=== PATIENT | female | born 1945 | race Caucasian/White ===

== ENCOUNTER 2022-06-30 06:15 | Day surgery (SDC) | payer MEDICARE, BC ==
[2022-06-30] MEDS ORDERED: Sodium Chloride 0.9% 1,000 ML IV SCH (07:00)
[2022-06-30] MEDS ORDERED: fentaNYL 50 MCG/ML SDV ONE (07:30)
[2022-06-30] MEDS ORDERED: Propofol 200 MG/20 ML SDV ONE (07:30)
[2022-06-30 09:03] VITALS: BP 114/59; PULSE 56
== END 2022-06-30 09:17 | disposition home or self-care (01) ==
LOC: JP.SDS 06:15
PROVIDERS: ATTEND Surgery
DX: Z12.11 Encounter for screening for malignant neoplasm of colon (principal); K63.5 Polyp of colon; K57.30 Diverticulosis of large intestine without perforation or abscess without bleeding; E78.00 Pure hypercholesterolemia, unspecified; F17.200 Nicotine dependence, unspecified, uncomplicated; Z85.038 Personal history of other malignant neoplasm of large intestine; Z79.899 Other long term (current) drug therapy
CPT/HCPCS: 45380; 45385; 88305; J2704; J3010; J7030